=== PATIENT | male | born 1950 | race African-American/Black ===

== ENCOUNTER → 2016-12-30 | Day surgery (SDC) | payer OTHER, MEDICARE ==
[~2016-12-30] MED LIST: LO-DOSE ASPIRIN81 M1 PO; MULTI VITAMIN1 EACH PO; TOPROL XL50 MG PO
--- NOTE | ~2016-12-30 | OR ---
Unit #: [id number] #: [id number] Patient: AINSLEY JIMENEZ SR [id number] [address] [place], [place] [address] [id number] MR#: [id number] NAME: AINSLEY JIMENEZ SR ROOM: Date of Procedure: 12/30/2016 Admission Date: 12/30/2016 Surgeon: Edgardo Allen III, M.D. : 1950 Attending Physician: Edgardo Allen III, M.D. Primary Care Physician: Dia Lazo M.D. OPERATIVE REPORT PREOPERATIVE DIAGNOSIS Large left indirect inguinal hernia. POSTOPERATIVE DIAGNOSIS Large left indirect inguinal hernia. PROCEDURE PERFORMED Laparoscopic left indirect inguinal hernia repair with mesh. BAND STRAIGHTENER Dr. Ever Yuan. SPECIMENS None. COMPLICATIONS None apparent. INDICATIONS FOR PROCEDURE This is a 66-year-old gentleman, who has a symptomatic left inguinal hernia that is fairly large. He is here today for laparoscopic repair. DESCRIPTION OF PROCEDURE After consent was obtained, the patient was brought to the operating room and placed in the supine position. General anesthetic was administered and his abdomen and the left groin area were prepped and draped in standard surgical fashion. I made a 1 cm incision just below the umbilicus. I dissected down and elevated the umbilicus with a towel clamp. I then obtained CO2 pneumoperitoneum. A 5-mm trocar was placed in that location and then I performed diagnostic laparoscopy. He had a large left indirect inguinal hernia and there was no hernia seen on the right side. He had undergone open right inguinal hernia in the past. I then desufflated the abdomen. I created a tunnel just posterior to the left rectus muscle. I used a balloon dissector to create the preperitoneal space. I then passed a balloon trocar in that location and obtained CO2 pneumopreperitoneum. Next, I placed two 5-mm trocars along the midline. Through these, I was able to clear out the retropubic space. I cleared out the lateral space and then obtained circumferential control around the large indirect inguinal hernia sac as well as the cord structures. Once I had the hernia dissected away from the cord structures, I then transected this with the cautery. I then ligated the proximal portion of the indirect inguinal hernia sac with an endoloop. Because of it being such a Unit #: [id number] #: [id number] Patient: AINSLEY JIMENEZ SR large sac, there was a portion of this that was not incorporated into the endoloop and I used Ligaclip to reapproximate the peritoneal edges. I then dissected the indirect inguinal hernia all the way back to the peritoneal reflection. Once the left inguinal space was completely dissected, I passed a large 3DMax mesh through the infraumbilical port site. I deployed the mesh and once it was properly oriented to widely cover the groin area, I tacked it medially with a SorbaFix Tacker to just above Ferny ligament and laterally to the lateral pelvic sidewall. Hemostasis was excellent. All needle, sponge, and instrument counts were correct x2. I removed all the trocars and released the pneumoperitoneum and the pneumopreperitoneum. The trocars were removed. I injected the port sites with 0.25% plain Marcaine. I reapproximated the fascia at the infraumbilical port site with interrupted 0 Vicryl suture and the skin edges were reapproximated with interrupted 4-0 Vicryl subcuticular suture. Steri-Strips were then applied. The patient tolerated the procedure without any problems and returned to the recovery room in stable condition. Dictated by... Edgardo Allen III, M.D. VCL/leda TD: 12/30/2016 17:12 JOB #: [id number] OPERATIVE REPORT Page 1 of 1 X Edgardo Allen III, MD PROCEDURE OPERATIVE NOTE
== END | disposition home or self-care (01) ==
LOC: CSUR 09:09
DX: K40.90 Unilateral inguinal hernia, without obstruction or gangrene, not specified as recurrent (principal); I25.10 Atherosclerotic heart disease of native coronary artery without angina pectoris; I25.2 Old myocardial infarction; J44.9 Chronic obstructive pulmonary disease, unspecified; I10 Essential (primary) hypertension; K21.9 Gastro-esophageal reflux disease without esophagitis; M19.90 Unspecified osteoarthritis, unspecified site; E78.5 Hyperlipidemia, unspecified; F17.210 Nicotine dependence, cigarettes, uncomplicated; Z88.0 Allergy status to penicillin; Z79.82 Long term (current) use of aspirin; Z79.899 Other long term (current) drug therapy; Z95.5 Presence of coronary angioplasty implant and graft; Z98.890 Other specified postprocedural states
CPT/HCPCS: C1781; J1100; J1885; J2250; J2270; J2710; J2765; J3370